=== PATIENT | female | born 1995 | race African-American/Black ===

== ENCOUNTER 2023-10-23 16:05 | Emergency (ER) | payer MEDICAID ==
[~2023-10-23] VITALS: Ht 182.9 cm; Wt 125.0 kg
[2023-10-23 16:09] VITALS: PULSE 74; O2SAT 100
[2023-10-23 16:13] VITALS: BP 139/95; TEMP 98.1; O2SAT 99
[2023-10-23 19:00] VITALS: RESP 19
[2023-10-23] MEDS ORDERED: IBUP-1525 MT (19:05)
== END 2023-10-23 19:50 | disposition home or self-care (01) ==
LOC: ER 16:05
DX: F41.9 Anxiety disorder, unspecified (principal)
CPT/HCPCS: 71045; 93005; 99283